=== PATIENT | male | born 1975 | race Caucasian/White ===

== ENCOUNTER 2020-10-12 16:56 | Emergency (ER) | payer OTHER ==
[~2020-10-12] VITALS: Ht 167.6 cm; Wt 81.7 kg
[2020-10-12] MEDS ORDERED: PROAIR HFA8.5 GM INH (17:12)
[2020-10-12 20:22] VITALS: BP 132/74
== END 2020-10-12 20:22 | disposition home or self-care (01) ==
LOC: M.ERS 16:56
DX: M54.16 Radiculopathy, lumbar region (principal); J45.909 Unspecified asthma, uncomplicated; F17.210 Nicotine dependence, cigarettes, uncomplicated; Z79.899 Other long term (current) drug therapy; Z91.02 Food additives allergy status

== ENCOUNTER 2021-02-09 09:41 | Emergency (ER) | payer OTHER ==
[~2021-02-09] VITALS: Ht 167.6 cm; Wt 73.9 kg
[~2021-02-09 09:41] MED LIST: PROAIR HFA8.5 GM INH
[2021-02-09] MEDS ORDERED: LISINOPRIL2.5 MG PO (12:18)
[2021-02-09] MEDS ORDERED: MEDROLDOSEPACK PO (13:14)
[2021-02-09 13:21] VITALS: BP 163/103
== END 2021-02-09 13:22 | disposition home or self-care (01) ==
LOC: M.ERS 09:41
DX: M25.512 Pain in left shoulder (principal); I10 Essential (primary) hypertension; J45.909 Unspecified asthma, uncomplicated; Z79.899 Other long term (current) drug therapy; Z91.02 Food additives allergy status